=== PATIENT | male | born 1950 | race Caucasian/White ===

== ENCOUNTER 2018-06-05 15:32 | Emergency (ER) | payer OTHER ==
[~2018-06-05] VITALS: Ht 167.6 cm; Wt 74.8 kg
[2018-06-05] MEDS ORDERED: CELEBREX200MG PO (17:58)
[2018-06-05] MEDS ORDERED: SKELAXIN800 MG PO (17:58)
== END 2018-06-05 18:02 | disposition home or self-care (01) ==
LOC: ER 15:32
DX: M54.5 Low back pain (principal)

== ENCOUNTER 2021-02-02 08:41 | Emergency (ER) | payer OTHER ==
[~2021-02-02] VITALS: Ht 175.3 cm; Wt 85.3 kg
[~2021-02-02 08:41] MED LIST: CELEBREX200MG PO; SKELAXIN800 MG PO
[2021-02-02] MEDS ORDERED: LISINOPRIL5 MG PO (08:49)
== END 2021-02-02 09:07 | disposition home or self-care (01) ==
LOC: ER 08:41
DX: L30.8 Other specified dermatitis (principal); R21 Rash and other nonspecific skin eruption

== ENCOUNTER 2021-02-20 13:57 | Emergency (ER) | payer OTHER ==
[~2021-02-20] VITALS: Ht 175.3 cm; Wt 81.6 kg
[~2021-02-20 13:57] MED LIST changes: +LISINOPRIL5 MG PO
== END 2021-02-20 18:23 | disposition home or self-care (01) ==
LOC: ER 13:57
DX: J02.9 Acute pharyngitis, unspecified (principal)

== ENCOUNTER 2022-11-29 20:09 | Emergency (ER) | payer OTHER ==
[~2022-11-29] VITALS: Ht 175.3 cm; Wt 81.6 kg
== END 2022-11-29 21:36 | disposition home or self-care (01) ==
LOC: ER 20:09
DX: M54.9 Dorsalgia, unspecified (principal)
CPT/HCPCS: 96372; 99284; J1885; J2360